=== PATIENT | male | born 1995 | race Caucasian/White ===

== ENCOUNTER 2019-07-10 12:09 | Emergency (ER) | payer BC ==
[~2019-07-10] VITALS: Ht 175.3 cm; Wt 77.1 kg
[2019-07-10 12:17] VITALS: BP 129/71
--- NOTE | 2019-07-10 12:23 | NUR ---
C/O INTERMITTENT LOWER BACK PAIN UNK FOR HOW LONG---LAST NIGHT PT STATES IT HURT PRETTY [employer]
[2019-07-10 13:08] VITALS: BP 127/69
--- NOTE | 2019-07-10 13:08 | NUR ---
Patient discharged with v/s stable. Written and verbal after care instructions given and explained. Patient verbalized understanding. Ambulatory with steady gait. All questions addressed prior to discharge. Advised to follow up with PMD.
== END 2019-07-10 13:08 | disposition home or self-care (01) ==
LOC: MED 12:09
DX: M54.9 Dorsalgia, unspecified (principal); K60.2 Anal fissure, unspecified
CPT/HCPCS: 99281